=== PATIENT | male | born 1955 | race African-American/Black ===

== ENCOUNTER 2020-12-20 14:18 | Inpatient (IN) | payer MEDICARE, MEDICAID ==
[~2020-12-20] VITALS: Ht 177.8 cm; Wt 105.0 kg
--- NOTE | 2020-12-20 14:20 | NUR ---
TO ROOM 6 FOR TRIAGE
[2020-12-20 15:00] LABS: HEMATOCRIT 45.3 % (39.0-50.0); MEAN CELL VOLUME 88.5 fL CALC (80.0-100.0); MEAN CORPUSCULAR HGB 27.3 pG CALC (26.0-32.0); MEAN CORPUSCULAR HGB CONC 30.9 g/dL CAL (32.0-36.0); NEUT# 3.13 thou/uL (1.82-7.42); RED BLOOD COUNT 5.12 mill/uL (4.70-6.10); RED CELL DISTRI WIDTH 13.5 % (11.5-15.5)
--- NOTE | 2020-12-20 15:11 | NUR ---
IV MEDS INFUSING WITHOUT DIFFICULTY. VITALS STABLE. CALL LIGHT WITHIN REACH. BED IN LOW POSITION. NO DISTRESS NOTED.
[2020-12-20 15:13] LABS: ALBUMIN 4.3 g/dL (3.2-5.0); ANION GAP 13 (6-22 (CALC)); BUN 15 mg/dL (8-23); BUN/CREATININE RATIO 16 (12-20 (CALC)); CARBON DIOXIDE 31 mmol/l (22-30); CHLORIDE 101 mmol/l (95-108); CREATININE 0.9 mg/dL (0.7-1.3); GFR > 60 ML/MIN (>=60 (CALC)); GFR FOR AFR.AMER. > 60 ML/MIN (>=60 (CALC)); LIPASE 400 u/l (23-300); POTASSIUM 3.7 mmol/l (3.5-5.1); SODIUM 140 mmol/l (137-146); TOTAL PROTEIN 8.4 g/dL (6.3-8.2)
[2020-12-20 15:16] LABS: ALKALINE PHOSPHATASE 188 u/l (38-126); BILIRUBIN, TOTAL 0.8 mg/dL (0.0-1.4); SGOT/AST 66 u/l (19-48)
[2020-12-20 15:19] LABS: D-DIMER 0.33 mg/L (0.19-0.60)
[2020-12-20 15:22] LABS: ACT PARTIAL THROMBO TIME 30.3 SECONDS (20.0-32.5); PROTHROMBIN TIME 10.3 SECONDS (9.0-12.5)
--- NOTE | 2020-12-20 16:03 | NUR ---
IV MEDS CONTINUE TO INFUSE. VITLAS UPDATED. NO DISTRESS NOTED.
--- NOTE | 2020-12-20 16:35 | NUR ---
ATTEMPTED TO CALL REPORT TO [facility] [place]. NURSE TO CALL BACK.
--- NOTE | 2020-12-20 17:02 | NUR ---
REPORT GIVEN TO MÓNICA TAY ON [employer].
[2020-12-20 19:00] VITALS: BP 125/68
--- NOTE | 2020-12-20 21:18 | NUR ---
PHYSICAL ASSESMENT COMPLETE. PT CURRENTLY DENIES PAIN OR DISCOMFORT. SCHEDULED MEDICATIONS AND PRN MEDICATION ADMINISTERED, SEE E-MAR. PT DENIES ANY NEEDS AT THIS TIME. PLAN OF CARE REVIEWED, PT DENIES QUESTIONS, VERBALIZES UNDERSTANDING. ITEMS WITHIN REACH, BED LOCKED IN LOW POSITION W/ BEDRAILS UP X2. CALL SOMMERS WITHIN REACH, AGREES TO CALL PRN.
[2020-12-20 23:57] LABS: URINE BILIRUBIN - DIPSTICK NEGATIVE (NEGATIVE); URINE BLOOD DIPSTICK MODERATE (NEGATIVE); URINE COLOR YELLOW; URINE GLUCOSE - DIPSTICK NEGATIVE (NEGATIVE); URINE KETONE TRACE mg/dL (NEGATIVE); URINE LEUK ESTERASE NEGATIVE (NEGATIVE); URINE PH 5.5 (4.5-8.0); URINE PROTEIN - DIPSTICK 100 mg/dL (NEG-TRACE); URINE SPECIFIC GRAVITY >=1.030; URINE UROBILINOGEN - DIPSTICK 0.2 E.U./dL (0.2)
[2020-12-20 23:58] LABS: URINE NITRITE - DIPSTICK NEGATIVE (Negative)
[2020-12-21] VITALS: BP 126/60
--- NOTE | 2020-12-21 00:17 | NUR ---
PT LAYING IN BED WITH EYES CLOSED, APPEARS TO BE SLEEPING, APPEARS COMFORTABLE AND IN NO DISTRESS. RESPIRATIONS REGULAR AND UNLABORED. ITEMS REMAIN WITHIN REACH, CALL SOMMERS REMAINS WITHIN REACH. BED REMAINS LOCKED AND IN LOW POSITION WITH BEDRAILS UP X2. WILL CONTINUE TO MONITOR.
[2020-12-21 00:29] LABS: URINE MUCUS FEW hpf (NONE-FEW); URINE SQUAMOUS EPITHELIAL CELL FEW EPI/hpf (0-FEW)
[2020-12-21 04:00] VITALS: BP 145/72
--- NOTE | 2020-12-21 04:00 | NUR ---
PT RESTING IN BED, NO SIGNS OF DISTRESS NOTED, RESP EVEN AND UNLABORED. PT VOICES NO NEEDS OR COMPLAINTS AT THIS TIME. CALL LIGHT IN REACH, CONTINUE TO MONITOR.
[2020-12-21 05:52] LABS: ALKALINE PHOSPHATASE 167 u/l (38-126); ANION GAP 16 (6-22 (CALC)); BILIRUBIN, TOTAL 0.6 mg/dL (0.0-1.4); BUN 15 mg/dL (8-23); BUN/CREATININE RATIO 21 (12-20 (CALC)); C-REACTIVE PROTEIN 7.9 mg/dL (0-0.9); CARBON DIOXIDE 26 mmol/l (22-30); CHLORIDE 100 mmol/l (95-108); CREATININE 0.7 mg/dL (0.7-1.3); GFR > 60 ML/MIN (>=60 (CALC)); GFR FOR AFR.AMER. > 60 ML/MIN (>=60 (CALC)); SGOT/AST 56 u/l (19-48); SODIUM 137 mmol/l (137-146); TOTAL PROTEIN 7.5 g/dL (6.3-8.2)
[2020-12-21 05:59] LABS: POTASSIUM 4.6 mmol/l (3.5-5.1)
[2020-12-21 06:51] LABS: HEMATOCRIT 45.1 % (39.0-50.0); HEMOGLOBIN 13.6 g/dl (14.0-18.0); IMMATURE GRANULOCYTES 2.6 % (0.0-5.0); MEAN CELL VOLUME 89.7 fL CALC (80.0-100.0); MEAN CORPUSCULAR HGB CONC 30.2 g/dL CAL (32.0-36.0); NEUT# 2.3 thou/uL (1.82-7.42); RED BLOOD COUNT 5.03 mill/uL (4.70-6.10); RED CELL DISTRI WIDTH 13.4 % (11.5-15.5)
[2020-12-21 09:03] VITALS: BP 163/76
--- NOTE | 2020-12-21 09:03 | NUR ---
PT RESTING IN SEMI FOWLERS POSITION. PT IS A/O X3. ASSESSMENT AND VITALS COMPLETED. BP 163/76, HR 78, O2 93% ON 2L NC. RESPIRATIONS ARE EVEN AND UN;ABORED WITH NO DISTRSS NOTED. DRY COUGH NOTED. LUNG SOUNDS ARE DMINIHSED. BOWEL SOUNDS ARE ACTIVE. HEART RHYTHM NORMAL. #20G RFA FLUSHED, SITE APPEARS HEALTHY AND PATENT. SKIN INTACT. PT DENIES OF ANY PAINS OR DISCOMFORTS AT THIS TIME. I.S PROVIDED TO PT. PT EDUCATED ON I.S/CHAIR/PRONING. PT VERBLAIZED UNDERSTANDING. ALL SAFETY PRECAUTIONS ARE IN PLACE WITH CALL LIGHT IN REACH. AIR/CONTACT PRECAUTIONS. WILL CONTINUE TO MONITOR.
--- NOTE | 2020-12-21 11:52 | NUR ---
Called pt's , she is currenlty in [facility] and does not know what medication pt takes at home. Pt preferred pharmacy and PCP is closed today (). Pt does not know what medication he take at home. Pt has no medication on his claim history and he doesn't trust any of his friends to help obtain the meds from his home. I was unable to complete this pt's med rec.
--- NOTE | 2020-12-21 11:58 | NUR ---
DR ALEMAN AND SANDY,ANKANE AT BEDSIDE
[2020-12-21 11:59] VITALS: BP 134/82
--- NOTE | 2020-12-21 13:19 | NUR ---
PT RESTING IN SEMI FOWLERS POSITION USING I.S. PT ABLE TO REACH 1000. RESPIRATIONS REMAINS EVEEN AND UNLABORE DON 2L NC. #20G RFA REMAINS IN PLACE. TELE MONITORING IN PLACE. PT DENIES OF ANY PAINS OR DISCOMFORTS AT THIS TIME. ALL SAFETY PRECAUTIONS ARE IN PLACE. WILL CONTINUE TO MONITOR.
--- NOTE | 2020-12-21 16:18 | NUR ---
PT RESTING IN SEMI FOWLERS POSITION. RESPIRATIONS ARE EVEN AND UNLABORE DON 2L NC. #20RFA INFUSING WITH IVF ANTIBIOTICS, SIET REMAIN HEALTHY AND PATENT.TELE MONITORING IN PLACE. PT DENIES OF ANY PAINS OR DISCOMFORTS AT THIS TIME. ALL SAFETY PRECAUTIONS ARE IN PLACE WITH CALL LIGHT IN REACH. ISOLATION PRECAUTIONS IN PLACE. WILL CONTINUE TO MONITOR.
[2020-12-21 17:00] VITALS: BP 132/69
--- NOTE | 2020-12-21 18:21 | NUR ---
PT SET UP FOR SHOWER. PT TO FINISH DINNER FIRST. NEW LINEN PROVIDED. PT TO CALL WHEN READY TO SHOWER.
[2020-12-21 19:00] VITALS: BP 145/75
--- NOTE | 2020-12-21 20:00 | NUR ---
PATIENT ALERT, VERBAL, ABLE TO MAKE NEEDS KNOWN. ABLE TO TOLERATE MEDS WELL WHOLE. LOVENOX THERAPY IN PLACE--NO S/S OF ABNORMAL BLEEDING NOTED. CONT ON IV ABT THERAPY RELATED TO COVID PNEUMONIA WITH NO SIDE EFFECTS NOTED--AFEBRILE. PIV SITE PATENT TO RIGHT FOREARM--FLUSHES WELL--SITE UNREMARKABLE--SALINE LOCKED. O2 @ 2L/MIN BNC--SOME EXERTIONAL SOB NOTED--OTHERWISE NO RESP DISTRESS NOTED. USES INCENTIVE SPIROMETER CHARISSA. TELEMETRY IN PLACE WITH SR @ 76. LS DIMINSHED THROUGHOUT ALL LOBES--NOTED TO HAVE A DRY NON-PRODUCTIVE COUGH WELL. CONT OF BOWEL AND BLADDER--ABLE TO AMBULATE ABOUT INDEPENDENTLY TO AND FROM IN ROOM. DENIES PAIN. WILL CONT TO MONITOR FOR ANY FURTHER CHANGES.
[2020-12-22] VITALS: BP 137/81
--- NOTE | 2020-12-22 | NUR ---
PATIENT RESTING SOUNDLY IN BED WITH EYES CLOSED--OFFERS NO COMPLAINTS OF PAIN OR DISCOMFORT. O2 @ 2L/MIN BNC--NO S/S OF RESP DISTRESS NOTED. PIV SITE PATENT TO RFA--FLUSHES WELL--SITE UNREMARKABLE--SALINE LOCKED. TELEMETRY IN PLACE--SR @ 80. WILL CONT TO MONITOR FOR ANY FURTHER CHANGES.
--- NOTE | 2020-12-22 04:00 | NUR ---
PATIENT RESTING SOUNDLY ALL NIGHT--OFFERED NO COMPLAINTS. PIV SITE REMAINS PATENT TO RFA--FLUSHES WELL--SALINE LOCKED. TO CONTINUE TO RECEIVE IV ABT THERAPY RELATED TO COVID PNEUMONIA WITH NO SIDE EFFECTS NOTED--AFEBRILE. O2 @ 2L/MIN BNC. TELEMETRY IN PLACE WITH SR @ 66. WILL CONT TO MONITOR FOR ANY FURTHER CHANGES.
[2020-12-22 05:00] VITALS: BP 131/74
[2020-12-22 06:41] LABS: ALBUMIN 3.7 g/dL (3.2-5.0); ALKALINE PHOSPHATASE 139 u/l (38-126); ANION GAP 13 (6-22 (CALC)); BILIRUBIN, TOTAL 0.4 mg/dL (0.0-1.4); BUN 21 mg/dL (8-23); BUN/CREATININE RATIO 28 (12-20 (CALC)); CARBON DIOXIDE 28 mmol/l (22-30); CHLORIDE 102 mmol/l (95-108); CREATININE 0.8 mg/dL (0.7-1.3); GFR > 60 ML/MIN (>=60 (CALC)); GFR FOR AFR.AMER. > 60 ML/MIN (>=60 (CALC)); POTASSIUM 4.6 mmol/l (3.5-5.1); SGOT/AST 75 u/l (19-48); SODIUM 138 mmol/l (137-146); TOTAL PROTEIN 6.8 g/dL (6.3-8.2)
--- NOTE | 2020-12-22 07:00 | NUR ---
RECIEVED REPORT FROM DANIEL WAGNER.
[2020-12-22 07:07] LABS: HEMATOCRIT 43.8 % (39.0-50.0); HEMOGLOBIN 13.2 g/dl (14.0-18.0); IMMATURE GRANULOCYTES 2.9 % (0.0-5.0); MEAN CELL VOLUME 89.6 fL CALC (80.0-100.0); MEAN CORPUSCULAR HGB CONC 30.1 g/dL CAL (32.0-36.0); NEUT# 4.92 thou/uL (1.82-7.42); RED BLOOD COUNT 4.89 mill/uL (4.70-6.10); RED CELL DISTRI WIDTH 13.4 % (11.5-15.5)
[2020-12-22 08:54] VITALS: BP 135/75
--- NOTE | 2020-12-22 08:54 | NUR ---
PT RESTING IN SEMI FOWLERS POSITION. ASSESSMENT AND VITALS COMPLETED. PT IS A/O X3. ASSESSMENT AND VITALS COMPLETED. BP 135/75, HR 78, O2 91% ON 4L NC. RESPIRATIONS ARE EVEN AND UNLABORED. LUNG SOUNDS ARE DIMINISHED. BWOEL SOUNDS ACTIVE. 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 HEART RHYTHM NORMAL WITH TELE IN PLACE. #20G RFA FLUSHED, SITE APPEARS HEALTHY AND PATENT. SKIN INTACT. PT DENIES OF ANY PAINS OR DISCOMFORTS. PT RE-EDUCATED ON I.S, GETTING UP TO CHAIR, AND PRONING PT VERBALIZED UNDERSTANDING. PT ASSISTED INTO PRONING POSITION, O2 92-93%. PT ENCOURAGED TO CONTINUE LONG TOLERATED. PT VERBALIZED UNDERSTANDING. ALL SAFETY PRECAUTIONS ARE IN PLACE WITH CALL LIGHT IN REACH. AIR/CONTACT PRECAUTIONS. WILL CONTINUE TO MONITOR.
--- NOTE | 2020-12-22 10:13 | NUR ---
REASSESSMENT OF O2 RESULTING IN 87% WITH PT RESTING IN SEMI FOWLERS POSITION. PT ENCOURAGED TO CONTINUE TO PRONE DUE TO INCREASE O2 DEMAND. PT PLACED BACK IN PRONE POSITION. O2 93%.RESPIRATIONS EVEN AND UNLABORED. ROBITUSSIN ADMINISTERED. ALL SAFETY PRECAUTIONS ARE IN PLACE. WILL CONTINUE TO MONITOR
--- NOTE | 2020-12-22 10:50 | NUR ---
DR ALEMAN AND SANDY,ANKANE AT BEDSIDE
--- NOTE | 2020-12-22 11:01 | NUR ---
[employer] SALES REPRESENTATIVE CALLED TO ROOM. PT REQUEST FOR CAR KEYS TO BE SENT DOWN STAIRS FOR BROTHER JAMI TO SALES REPRESENTATIVES. KEYS SENT DOWN TO REGISTRATION IN SEALED BAG WITH PT NAME.
[2020-12-22 11:32] VITALS: BP 138/82
--- NOTE | 2020-12-22 12:23 | NUR ---
PT SITTING UP IN CHAIR EATING LUNCH. REPSIRATIONS ARE EVEN AND UNLABORED WITH NO DISTRESS ON 4L NC. TELE MONITORING IN PLACE. #20G RFA REMAINS. BELINGING BROUGHT IN BY FAMILY GIVEN TO PT. PT DENIES OF ANY PAINS OR DISCOMFORTS AT THIS TIME. ALL SAFETY PRECAUTIONS ARE IN PLACE WITH CALL LIGHT IN REACH. ISOALTION PRECAUTIONS. WILL CONTINUE TO MONITOR
[2020-12-22 15:05] VITALS: BP 146/84
--- NOTE | 2020-12-22 16:30 | NUR ---
PT RESTING IN CHAIR. RESPRIRATIONS ARE EVEN AND UNLABORE DWITH NO DISTRESS NOTED. #20G RFA INFUSING WITH IVF PER ODER, SITE REMAINS HEALTHY AND PATENT. TELE MONITORING IN PLACE. PT DENIES OF ANY PAINS OR DISCOMFORTS AT THIS TIME. ALL SAFETY PRECAUTIONS ARE IN PLACE WITH CALL LIGHT IN REACH. WILL CONTINUE TO MONITOR
[2020-12-22 19:00] VITALS: BP 124/74
--- NOTE | 2020-12-22 20:47 | NUR ---
PT MEDICATED ORDERS PROVIDE. NO S/O DISTRESS. PT IS SITTING UPRIGHT IN RECLINER WITH 02NC ON @4L OXYG SAT 94% AT THIS TIME. DEMONSTRATED USE OF I.S.@1000 VOLUME. ASSESSMENT COMPLETED. PT REPORTS STILL HAVING 2X LOOSE STOOL THIS DAY. SNACK OFFERED/PROVIDED. PT ENCOURAGED TO CALL NEEDS ARISE.
[2020-12-23] VITALS: BP 148/64
--- NOTE | 2020-12-23 02:10 | NUR ---
PT SLEEPING, OXYGEN SAT ASSESSED @92% ON 4L.
--- NOTE | 2020-12-23 04:35 | NUR ---
PT V/S ASSESSED. 02 SAT 91% ON 4L, OXYGEN TITRATED UP TO 5L WITH SAT LEVELS SUSTAINED AT 92% PT DENIES ANY OTHER NEEDS AT THIS TIME. CALL LIGHT AT SIDE, LAB IS ENTERING ROOM AT THIS TIME.
[2020-12-23 04:40] VITALS: BP 139/76
[2020-12-23 05:33] LABS: HEMATOCRIT 41.9 % (39.0-50.0); HEMOGLOBIN 12.8 g/dl (14.0-18.0); IMMATURE GRANULOCYTES 4.8 % (0.0-5.0); MEAN CELL VOLUME 89.1 fL CALC (80.0-100.0); MEAN CORPUSCULAR HGB 27.2 pG CALC (26.0-32.0); MEAN CORPUSCULAR HGB CONC 30.5 g/dL CAL (32.0-36.0); NEUT# 3.32 thou/uL (1.82-7.42); RED BLOOD COUNT 4.7 mill/uL (4.70-6.10); RED CELL DISTRI WIDTH 13.3 % (11.5-15.5)
[2020-12-23 06:08] LABS: ALBUMIN 3.6 g/dL (3.2-5.0); ALKALINE PHOSPHATASE 116 u/l (38-126); ANION GAP 13 (6-22 (CALC)); BILIRUBIN, TOTAL 0.3 mg/dL (0.0-1.4); BUN 18 mg/dL (8-23); BUN/CREATININE RATIO 24 (12-20 (CALC)); C-REACTIVE PROTEIN 3.1 mg/dL (0-0.9); CARBON DIOXIDE 27 mmol/l (22-30); CHLORIDE 101 mmol/l (95-108); CREATININE 0.7 mg/dL (0.7-1.3); GFR > 60 ML/MIN (>=60 (CALC)); GFR FOR AFR.AMER. > 60 ML/MIN (>=60 (CALC)); POTASSIUM 4.5 mmol/l (3.5-5.1); SGOT/AST 31 u/l (19-48); SODIUM 137 mmol/l (137-146); TOTAL PROTEIN 6.7 g/dL (6.3-8.2)
--- NOTE | 2020-12-23 08:00 | NUR ---
Pt resting in bed. Pt. A&O x 3 Pt denies any pain or discomfort at this time. Vitals and assessment complete. Lungs diminished, pt SPO2=92-93% on 5L nasal canula. Heart rate normal with strong peripheral pulses palpable and strong. Bowel sounds active, LBM ON 12/22 IV site RFA is patent and saline locked. Will continue to momitor patient closely
[2020-12-23] MEDS ORDERED: TOPROL XL50 MG PO (09:25)
[2020-12-23] MEDS ORDERED: PRAVASTATIN10 MG PO (09:26)
[2020-12-23] MEDS ORDERED: NAPROXEN500 MG PO (09:27)
[2020-12-23 11:00] VITALS: BP 127/62
--- NOTE | 2020-12-23 11:14 | NUR ---
Pt A&Ox3. Pt denies any pain or discomfort at this time. Lung sounds diminished, pt denies any SOB. Vitals and assessment completed. Abdomen soft round and nontender.Bowel sounds active. LBM 9/7. skin intact HR within normal range for patient. Perpheral pulses palpable. Safety measures are in place and call light within patient's reach. Will continue to monitor patient
--- NOTE | 2020-12-23 16:50 | NUR ---
PT ALERT AND ORIENTED X3. PT DENIES ANY PAIN AT THIS TIME. PT C/O COUGH. CONTACTED PHYSICIAN FOR ORDER FOR SOMETHING FOR COUGH. PT TOOK A SHOWER TODAY.
[2020-12-23 19:00] VITALS: BP 102/59
--- NOTE | 2020-12-23 19:45 | NUR ---
PATIENT SITTING UP IN CHAIR. NO ACUTE DISTRESS. RESPIRATIONS EASY AND EVEN ON 3L N/C. HR REG. ON TELEMETRY. VAD PATIENT WITH DRESSING CDI, FLUSHED. DENIES PAIN. ROBITUSSIN GIVEN PER REQUEST. ASSESSMENT COMPLETED AND CHARTED. BED IN LOW POSITION. CALL LIGHT WITHIN REACH.
[2020-12-24] VITALS: BP 121/56
--- NOTE | 2020-12-24 | NUR ---
RESTING QUIETLY. NO COMPLAINTS. NO ACUTE DISTRESS. BED IN LOW POSITION. CALL LIGHT WITHIN REACH.
[2020-12-24 04:00] VITALS: BP 144/66
--- NOTE | 2020-12-24 04:09 | NUR ---
NO CHANGES. RESTING QUIETLY. NO COMPLAINTS.
[2020-12-24 05:33] LABS: HEMATOCRIT 42.2 % (39.0-50.0); IMMATURE GRANULOCYTES 4.7 % (0.0-5.0); MEAN CORPUSCULAR HGB 27.4 pG CALC (26.0-32.0); MEAN CORPUSCULAR HGB CONC 30.8 g/dL CAL (32.0-36.0); NEUT# 4.31 thou/uL (1.82-7.42); RED BLOOD COUNT 4.74 mill/uL (4.70-6.10)
[2020-12-24 06:05] LABS: ALBUMIN 3.4 g/dL (3.2-5.0); ALKALINE PHOSPHATASE 103 u/l (38-126); ANION GAP 13 (6-22 (CALC)); BILIRUBIN, TOTAL 0.3 mg/dL (0.0-1.4); BUN 16 mg/dL (8-23); BUN/CREATININE RATIO 26 (12-20 (CALC)); C-REACTIVE PROTEIN 2.4 mg/dL (0-0.9); CARBON DIOXIDE 27 mmol/l (22-30); CHLORIDE 102 mmol/l (95-108); CREATININE 0.6 mg/dL (0.7-1.3); GFR > 60 ML/MIN (>=60 (CALC)); GFR FOR AFR.AMER. > 60 ML/MIN (>=60 (CALC)); POTASSIUM 4.4 mmol/l (3.5-5.1); SGOT/AST 26 u/l (19-48); SODIUM 137 mmol/l (137-146); TOTAL PROTEIN 6.3 g/dL (6.3-8.2)
--- NOTE | 2020-12-24 08:00 | NUR ---
PT SLEEPING,EASILY AROUSED. PT ALERT AND ORIENTED AND DENIES ANY PAIN OR SOB AT THIS TIME. SPO2 92 ON 3L NC. LUNGS DIMINISHED BREATHS EVEN AND UNLABORED. ABDOMEN SOFT ROUND AND NONTENDER. PERIPHERAL PULSES PALPABLE IV PATENT SKIN INTACT.IV PATENT. SAFETY PERCAUTIONS IN PLACE AND CALL LIGHT WITHIN PATIENTS REACH. WILL MONITOR PT CLOSELY
[2020-12-24 11:00] VITALS: BP 147/71
--- NOTE | 2020-12-24 11:50 | NUR ---
PT RESTING COMFORTABLE IN BED. CONDITION STABLE AND UNCHANGED. WILL CONTINUE TO MONITOR PATIENT CLOSELY
--- NOTE | 2020-12-24 13:00 | NUR ---
5 MINUTE WALK TEST PERFORMED AND RESULTS GIVEN TO [facility]
--- NOTE | 2020-12-24 14:09 | NUR ---
IV RFA LEAKING. IV DISCHARGED. REMDISIVIR ON HOLD FOR NEW IV. TWO UNSUCCESSFUL ATTEMPTS TO START NEW IV. PATIENT GIVEN FLUIDS WILL ATTEMPT AGAIN
--- NOTE | 2020-12-24 18:13 | NUR ---
PT RESTING COMFORTABLY IN BED. PT DENIES PAIN OR DISCOMFORT. NO CHANGE IN STATUS WILL CONTINUE TO MONITOR PT CLOSELY
[2020-12-24 19:00] VITALS: BP 126/75
[2020-12-25] VITALS: BP 154/70
[2020-12-25 04:00] VITALS: BP 153/69
--- NOTE | 2020-12-25 05:19 | NUR ---
PATIENT MEDICATED FOR LEFT SHOULDER PAIN, DENIES ANY FURTHER NEEDS AT THIS GRETA
[2020-12-25 05:41] LABS: HEMATOCRIT 39.7 % (39.0-50.0); HEMOGLOBIN 12.4 g/dl (14.0-18.0); IMMATURE GRANULOCYTES 5.9 % (0.0-5.0); MEAN CORPUSCULAR HGB 27.5 pG CALC (26.0-32.0); MEAN CORPUSCULAR HGB CONC 31.2 g/dL CAL (32.0-36.0); NEUT# 5.03 thou/uL (1.82-7.42); RED BLOOD COUNT 4.51 mill/uL (4.70-6.10)
[2020-12-25 05:50] LABS: ALBUMIN 3.3 g/dL (3.2-5.0); ALKALINE PHOSPHATASE 91 u/l (38-126); ANION GAP 11 (6-22 (CALC)); BILIRUBIN, TOTAL 0.4 mg/dL (0.0-1.4); BUN 16 mg/dL (8-23); BUN/CREATININE RATIO 21 (12-20 (CALC)); CARBON DIOXIDE 28 mmol/l (22-30); CHLORIDE 100 mmol/l (95-108); CREATININE 0.8 mg/dL (0.7-1.3); GFR > 60 ML/MIN (>=60 (CALC)); GFR FOR AFR.AMER. > 60 ML/MIN (>=60 (CALC)); POTASSIUM 4.2 mmol/l (3.5-5.1); SGOT/AST 22 u/l (19-48); SODIUM 135 mmol/l (137-146); TOTAL PROTEIN 6.1 g/dL (6.3-8.2)
[2020-12-25] MEDS ORDERED: DECADRON2 MG PO (12:25)
[2020-12-25] MEDS ORDERED: VENTOLIN HFA108 MCG IN (12:25)
[2020-12-25] MEDS ORDERED: ZITHROMAX250 MG PO (12:26)
[2020-12-25] MEDS ORDERED: ASPIRIN REGULA325 M1 PO (12:27)
--- NOTE | 2020-12-25 14:55 | NUR ---
PT COMPLETED 4 MIN OF 6 MIN WALK TEST. PT DOES USE A CANE AND DID NOT COMPLETE TEST BUT DUE TO PHYSICAL REASON NOT RESPIRATORY. PT DESAT TO 84% WITH NO 02 ABOUT 3 MIN IN TO WALK TEST, QUICKLY RETURNED TO 91% WITH A FEEW DEEP BREATHS. Lucio ROA STATED PT CAN GO HOME AFTER DOSE OF REMDESIVIR.
--- NOTE | 2020-12-25 16:01 | NUR ---
Discharge instructions given. Patient verbalizes understanding of same. Discharged in stable condition via Wheelchair to Home with family. All belongings sent with pt.
== END 2020-12-25 15:56 | disposition home or self-care (01) | DRG 177 ==
LOC: ED 14:18 → ED-I 15:22 → ED 15:37 → MS2 15:37
PROVIDERS: Nurse Practitioner; ADMIT Hospitalist; ATTEND Hospitalist
PROC: XW033E5 Introduction of Remdesivir Anti-infective into Peripheral Vein, Percutaneous Approach, New Technology Group 5 (ICD-10-PCS; principal; 2020-12-21)
DX: U07.1 COVID-19 (principal); J12.82 Pneumonia due to coronavirus disease 2019; J96.91 Respiratory failure, unspecified with hypoxia; I10 Essential (primary) hypertension
CPT/HCPCS: J1650

== ENCOUNTER 2021-03-23 07:07 | Day surgery (SDC) | payer MEDICARE, MEDICAID ==
[~2021-03-23] VITALS: Ht 177.8 cm; Wt 104.3 kg
[~2021-03-23 07:07] MED LIST: ASPIRIN REGULA325 M1 PO; DECADRON2 MG PO; EC-NAPROXEN500 MG PO; NAPROXEN500 MG PO; PRAVASTATIN10 MG PO; TOPROL XL50 MG PO; TRAMADOL HYDROC50 M1 PO; VENTOLIN HFA108 MCG IN; ZITHROMAX250 MG PO
[2021-03-23 09:23] VITALS: BP 149/75
== END 2021-03-23 09:29 | disposition home or self-care (01) ==
LOC: ENDO 07:07
PROVIDERS: ATTEND Surgery
PROC: 0DJD8ZZ Inspection of Lower Intestinal Tract, Via Natural or Artificial Opening Endoscopic (ICD-10-PCS; principal; 2021-03-23)
DX: Z12.11 Encounter for screening for malignant neoplasm of colon (principal); K57.30 Diverticulosis of large intestine without perforation or abscess without bleeding; I10 Essential (primary) hypertension; E78.5 Hyperlipidemia, unspecified